=== PATIENT | female | born 1995 | race Caucasian/White ===

== ENCOUNTER 2019-02-01 16:25 | Emergency (ER) | payer BC ==
--- NOTE | 2019-02-01 18:06 | ED ---
Lower Extremity - HPI Summary HPI Summary: 23-year-old female presents with right knee injury today. States that she was rock climbing when she let go and her foot got caught. She ended up twisting her knee. She has pain on the medial aspect of the right knee. No tingling or numbness. No previous fracture. States not able to place weight in the area without it feeling like it is giving out. Has no medical conditions. She has not taking anything for pain. pain is minimal. - History of Current Complaint Chief Complaint: EDExtremityLower Stated Complaint: KNEE INJURY PER PT Time Seen by Provider: 02/01/19 17:38 Pain Intensity: 5 - Allergies/Home Medications Allergies/Adverse Reactions: Allergies Allergy/AdvReac Type Severity Reaction Status Date / Time amoxicillin Allergy Unknown Verified 02/01/19 16:40 Reaction Details Home Medications: Home Medications NK [No Home Medications Reported] 02/01/19 [History Confirmed 02/01/19] PMH/Surg Hx/FS Hx/Imm Hx Endocrine/Hematology History: Denies: Hx Anticoagulant Therapy Respiratory History: Denies: Hx Asthma Infectious Disease History: No Infectious Disease History: Denies: Traveled Outside the [place] in Last 30 Days - Family History Known Family History: Positive: Non-Contributory - Social History Alcohol Use: Weekly Substance Use Type: Reports: None Smoking Status (MU): Never Smoked Tobacco Review of Systems Negative: Fever Negative: Chest Pain Negative: Shortness Of Breath Positive: Myalgia - right knee pain All Other Systems Reviewed And Are Negative: Yes Physical Exam Triage Information Reviewed: Yes Vital Signs On Initial Exam: Initial Vitals Temp Pulse Resp BP Pulse Ox 98.4 F 64 16 103/68 100 02/01/19 16:27 02/01/19 16:27 02/01/19 16:27 02/01/19 16:27 02/01/19 16:27 Vital Signs Reviewed: Yes Appearance: Positive: Well-Appearing Skin: Positive: Warm, Dry Head/Face: Positive: Normal Head/Face Inspection Eyes: Positive: Normal, Conjunctiva Clear ENT: Positive: Pharynx normal Respiratory/Lung Sounds: Positive: Clear to Auscultation, Breath Sounds Present Cardiovascular: Positive: Normal, RRR Musculoskeletal: Positive: Strength/ROM Intact - right knee with pain, Other - tenderness medial aspect of right knee, good pulses, sensation grossly intact. Negative: Edema Right Neurological: Positive: Normal Psychiatric: Positive: Normal Procedures - Sedation Patient Received Moderate/Deep Sedation with Procedure: No Diagnostics - Vital Signs Vital Signs Temp Pulse Resp BP Pulse Ox 02/01/19 16:27 98.4 F 64 16 103/68 100 - Laboratory Lab Statement: Any lab studies that have been ordered have been reviewed, and results considered in the medical decision making process. - Radiology knee Radiology Interpretation Completed By: Radiologist Summary of Radiographic Findings: IMPRESSION: Small to moderate suprapatellar joint effusion without radiographically apparent acute bony abnormality. Lower Extremity Course/Dx - Course Course Of Treatment: 23-year-old female presents with right knee injury today. States that she was rock climbing when she let go and her foot got caught. She ended up twisting her knee. She has pain on the medial aspect of the right knee. No tingling or numbness. No previous fracture. States not able to place weight in the area without it feeling like it is giving out. Has no medical conditions. She is not taking anything for pain. pain is minimal. On exam tenderness over the last night of right knee. Neurovascular intact. X- ray shows no fracture. Will give the immobilizer. told follow up with ortho if no improvement. Patient understands and agrees with plan. - Diagnoses Differential Diagnosis/HQI/PQRI: Positive: Fracture (Closed), Sprain, Strain Provider Diagnoses: Right knee injury Discharge ED - Sign-Out/Discharge Documenting (check all that apply): Patient Departure - Discharge Plan Condition: Good Disposition: HOME Patient Education Materials: Knee Pain (ED) Referrals: Ponce Aldana MD [Medical Doctor] - Additional Instructions: Use immobilizer Stay off knee as much as possible Ice, elevate, Ibuprofen or Tylenol every 6 hours for pain Follow up with ortho if no improvement Return to ED if develop or any new or worsening symptoms - Billing Disposition and Condition Condition: GOOD Disposition: Home
[2019-02-01 18:27] VITALS: BP 126/64
== END 2019-02-01 18:26 | disposition home or self-care (01) ==
LOC: ED 16:25
DX: S89.91XA Unspecified injury of right lower leg, initial encounter (principal); X50.9XXA Other and unspecified overexertion or strenuous movements or postures, initial encounter; Y93.31 Activity, mountain climbing, rock climbing and wall climbing; Y92.9 Unspecified place or not applicable; Z88.0 Allergy status to penicillin
CPT/HCPCS: 99282